=== PATIENT | female | born 1935 | race Caucasian/White ===

== ENCOUNTER 2016-08-27 11:34 | Emergency (ER) | payer MEDICARE, BC ==
[2016-08-27] MEDS ORDERED: KETOROLAC TROMETHAMINE 30 MG/ML VIAL IM ONE (12:04)
[2016-08-27] MEDS ORDERED: LORazepam 2 MG/ML DISP.SYRIN IM ONE (12:04)
--- NOTE | 2016-08-27 12:10 | ERNOTE ---
Back Pain ER HPI Time Seen by Provider: 08/27/16 12:02 Source: patient Exam Limitations: no limitations Immunizations: IMMUNIZATION HX Immunizations Up to Date Yes History of Influenza Vaccine Yes Allergies/Adverse Reactions: Allergies codeine Adverse Reaction (Verified 08/27/16 11:57) Home Medications: HOME MEDICATIONS Cyclobenzaprine HCl [Flexeril] 10 mg PO BID PRN #20 tablet 08/27/16 [Last Taken Unknown] Mv-Min/Folic/Vit K/Lycop/Coq10 [Daily Multivitamin Capsule] 1 each PO 08/27/16 [ Last Taken Unknown] [place] Oil/[place]-3 Fatty Acids [Fish Oil] 1,200 mg PO 08/27/16 [Last Taken Unknown] Narrative: Patient has a history of low back pain and from time to time has been experiences muscle spasms. They she comes in for low back pain and tightening in the lumbosacral region which began 24 hours ago. Patient has not taken any medication for this. There have been no precipitating events. Patient denies any fevers or chills patient denies any dysuria or urinary frequency or hematuria. Review of Systems - Review of Systems Constitutional: Present: no symptoms reported EYE: Present: no symptoms reported ENT: Present: no symptoms reported Respiratory: Present: no symptoms reported Cardiology: Present: no symptoms reported Gastrointestinal/Abdominal: Present: no symptoms reported Genitourinary: Present: See HPI Musculoskeletal: Present: See HPI Skin: Present: no symptoms reported - Patient's Past Medical History Patient History - Medical: No pertinent hx Patient History - Cardiac/Respiratory: No pertinent hx Patient History - Cancer: No Hx of Cancer Patient History - Surgical Procedures: Appendectomy, Back Surgery, Cholecystectomy, Hysterectomy, T & A Patient History - Other: None - Social History Living Situations: spouse Psych History: No pertinent hx Smoking Status: Never smoker - Immunizations Immunizations Up to Date: Yes History of Influenza Vaccine: Yes Physical Exam - Physical Exam General Appearance: Present: wd/wn, alert, no apparent distress, other - patient is standing because sitting down while painless getting up is extremely painful. Ears, Nose, Throat: Present: normal ENT inspection Neck: Present: normal inspection, nontender Respiratory: Present: no respiratory distress, normal breath sounds, no accessory muscle use, chest nontender, lungs clear Cardiovascular/Chest: Present: regular rate, rhythm, no murmur, normal peripheral pulses Gastrointestinal/Abdominal: Present: normal bowel sounds, nontender, nondistended, soft Back Exam: Present: normal inspection, other - patient has significant muscle spasm in the paravertebral muscle groups bilaterally in the lumbar region. She has no radiculopathy reflexes are intact and equal bilaterally Extremity Exam: Present: normal inspection, non-tender, normal range of motion Neurological Exam: Present: alert, oriented, normal mood/affect, no motor/ sensory deficits Skin Exam: Present: normal color, warm/dry ED Progress - Vital Signs Patient's Vital Signs:: I have reviewed the patient's vital signs. Vital Signs: Vital Signs 08/27/16 11:51 Temperature 36.0 C L Pulse Rate 85 Respiratory 18 Rate Blood Pressure 136/100 O2 Sat by Pulse 94 Oximetry - Progress/Reassessment Chief Complaint: Back Pain Plan - Plan Plan: And has significant lumbar region a muscle spasm and will be treated as such. Departure Clinical Impression: Muscle spasm - Departure Disposition: Home self-care Condition: Good Instructions: Muscle Cramps and Spasms, [id number] Referrals: Sunita Gordon MD [Primary Care Provider] - Prescriptions: Cyclobenzaprine HCl [Flexeril] 10 mg PO BID PRN #20 tablet PRN Reason: Pain
[2016-08-27] MEDS ORDERED: LORazepam 2 MG/ML DISP.SYRIN ONE (12:11)
[2016-08-27] MEDS ORDERED: KETOROLAC TROMETHAMINE 30 MG/ML VIAL ONE (12:11)
--- OUTSIDE RECORDS SUMMARY | 2016-08-27 12:23 | XMS REPORT | Continuity of Care Document ---
:1935 Author Organization [facility] [place] [address] Care Team Providers Name Role Phone Unavailable Primary Care Provider Unavailable Source Comments This disclosure is being made pursuant to the [employer] program and maynot contain all information available regarding this patient.[facility] Active Allergies and Adverse Reactions Not on File Current Medications Be aware that medications may not be up to date as of this document. Alwaysverify current medications with the patient. Not on file Active Problems Not on file Social History Tobacco Use Types Packs/Day Years Used Date Never Assessed Plan of Care Health Maintenance Due Date Last Done Comments Retired-Pertussis Vaccine Adult 08/06/1955 Retired-Tetanus Vaccine Adult 08/06/1954 Well Adult Visit 1986 Zoster Vaccine 60+ 1996 Bone Density 2001 Retired-Pneumococcal 23 Vaccine-65+ yo 2001 Retired-INFLUENZA VACCINE 11/26/2014 Results from Last 3 Months Not on file
--- OUTSIDE RECORDS SUMMARY | 2016-08-27 12:23 | XMS REPORT | Continuity of Care Document ---
:1935 Demographics Phone Unavailable Preferred Language Unknown Marital Status Unknown Caodaism Affiliation Unknown Race Unknown Ethnic Group Unknown Author Organization [facility] ([facility]) Address [place] [address] Phone [phone] Care Team Providers Name Role Phone Unavailable Primary Care Provider Unavailable Source Comments This disclosure is being made pursuant to the Care Everywhere program, applicable federal and state laws, and may not contain all informaitonavailable regarding this patient.[facility] ([facility]) Active Allergies and Adverse Reactions Not on File Current Medications Not on file Active Problems Not on file Social History Tobacco Use Types Packs/Day Years Used Date Never Assessed Plan of Care Health Maintenance Due Date Last Done Comments Hepatitis B Vaccine (1 of 3 - Primary Series) 1935 Tdap Vaccine [birth year]/06/1946 Lipid Disorder Screening 1954 Td Vaccine 1953 Mammogram 1976 Colonoscopy 1986 Zoster Vaccine 1996 Osteoporosis Screening (DXA Bone Density) 2001 Pneumococcal Vaccine (1 of 2 - PCV13) 2001 Influenza Vaccine: Seasonal (#1) 10/27/2015 Results from Last 3 Months Not on file
[2016-08-27 17:39] VITALS: BP 129/72
== END 2016-08-27 12:50 | disposition home or self-care (01) ==
LOC: ER 11:34
DX: M62.830 Muscle spasm of back (principal)